=== PATIENT | female | born 1960 | race Caucasian/White ===

== ENCOUNTER 2021-04-15 00:24 | Day surgery (SDC) | payer BC, SELFPAY ==
[2021-03-30 14:02] VITALS: BMI 35.5
[2021-04-15 08:00] VITALS: BP 169/102; PULSE 92; RESP 20; TEMP 37; O2SAT 99; BMI 36.7
--- NOTE | 2021-04-15 08:12 | WPDANESEPPF ---
Anes - Initial Pre Proc Eval Procedure: Operation Date: 04/15/21 09:00 Proposed Procedures p Screening Colonoscopy - Rashi Andujar MD Date/Time: 04/15/21 08:12 Surgeon: Rashi Andujar MD Pre Op Diagnosis: neoplasm screening Patient Data Age: 60 Gender: F Height: 1.6 m Weight: 94 kg Last Vital Signs Temp 37.0 C 04/15/21 08:00 Pulse 92 04/15/21 08:00 Resp 20 04/15/21 08:00 BP 169/102 H 04/15/21 08:00 Pulse Ox 99 04/15/21 08:00 Allergies Allergy/AdvReac Type Severity Reaction Status Date / Time azithromycin Allergy Unknown Hives Verified 04/15/21 08:06 Penicillins Allergy Unknown Joint Pain Verified 04/15/21 08:06 Sulfa (Sulfonamide Allergy Unknown Rash Verified 04/15/21 08:06 Antibiotics) Home Medications Medication Instructions Recorded Confirmed Type atorvastatin 20 mg tablet 20 mg PO DAILY #90 tablet 02/09/21 04/15/21 Rx cholecalciferol (vitamin D3) 50 50 mcg PO DAILY 02/09/21 04/15/21 History mcg (2,000 unit) capsule famotidine 20 mg tablet 20 mg PO DAILY 02/09/21 04/15/21 History fluticasone propionate 50 2 spray INTRANASAL DAILY 02/09/21 04/15/21 History mcg/actuation nasal spray,suspension metoprolol succinate 25 mg 25 mg PO DAILY #90 tablet 02/09/21 04/15/21 Rx tablet,extended release 24 hr multivitamin 1 tablet PO DAILY 02/09/21 04/15/21 History vitamin B complex 1 tablet PO DAILY 02/09/21 04/15/21 History Patient hx anesthesia problems: none Family hx anesthesia problems: none Results Review: All pre-operative results and documents have been reviewed as part of the pre-operative evaluation. [facility] Past Medical History Medical History Dyslipidemia History of miscarriage History of vaginal delivery x 2 Hypertension Palpitations Skin cancer Surgical History Surgical History H/O dilation and curettage History of appendectomy History of melanoma excision Hx of varicose vein stripping [place] teeth removed Family History Family History Father Family history of cardiovascular disease Family history of congestive heart failure Acute myocardial infarction Mother Hypertension Social History Social History Smoking status: Never smoker Second hand tobacco smoke exposure: Yes (when she was around her mom only) Alcohol intake: current Drinks per week: 7 Alcohol use details: one glass of wine a day Substance use: never Substance use type: does not use Living arrangements: with family Spiritual care concerns: No Anes - Eval Final PreProcedure Day of Procedure 04/15/21 08:12 Patient weight: obese Heart: regular rate and rhythm Lungs: clear to auscultation Airway: Mallampati scale class III and special considerations poor opening Neurological: alert and oriented Last oral intake: >/= 8 hours ASA classification: III Emergent: no Anesthetic plan: proceed Anesthesia type and monitoring: general GIVS and standard monitoring Results Review: All pre-operative results and documents have been reviewed as part of the pre-operative evaluation. Informed Consent: The patient's anesthetic plan and its attendant risks and benefits were discussed with the patient/family/POA. Questions were solicited and answers provided to the satisfaction of the patient/family/POA.
--- NOTE | 2021-04-15 08:17 | PM.HPGS ---
History of Present Illness History of Present Illness Consent: Risks, benefits, and alternatives have been discussed and questions answered. Patient agrees to proceed with procedure. Chief complaint: neoplasm screening Narrative: Sridevi Agosto is a 60 year old female here for screening colonoscopy, last one 15 years ago. Review of Systems Constitutional: Constitutional: Denies headache(s) and Denies weakness Eyes: Eyes: Denies blurry vision ENT: Reports Normal hearing present, Denies headache(s) and Denies neck pain Cardiovascular: Cardiovascular: Denies chest pain and Denies dyspnea Respiratory: Respiratory: Denies dyspnea Gastrointestinal: Gastrointestinal: Reports no additional gastrointestinal complaints Genitourinary: Genitourinary: Denies dysuria Musculoskeletal: Musculoskeletal: Denies neck pain Integumentary/Breasts: Skin/Breast: Denies dry skin Neurologic: Reports Normal hearing present, Denies headache(s) and Denies weakness Psychiatric: Psychiatric: Denies anxiety Endocrine: Endocrine: Denies change in body appearance Hematologic/Lymphatic: Hematologic/Lymphatic: Denies easy bleeding Allergic/Immunologic: Allergic/Immunologic: Denies urticaria PMFSH Past Medical History Medical History Dyslipidemia History of miscarriage History of vaginal delivery x 2 Hypertension Palpitations Skin cancer Surgical History Surgical History H/O dilation and curettage History of appendectomy History of melanoma excision Hx of varicose vein stripping [place] teeth removed Family History Family History Father Family history of cardiovascular disease Family history of congestive heart failure Acute myocardial infarction Mother Hypertension Social History Social History Smoking status: Never smoker Second hand tobacco smoke exposure: Yes (when she was around her mom only) Alcohol intake: current Drinks per week: 7 Alcohol use details: one glass of wine a day Substance use: never Substance use type: does not use Living arrangements: with family Spiritual care concerns: No Meds Home Medications and Allergies Home Medications Medication Instructions Recorded Confirmed Type atorvastatin 20 mg tablet 20 mg PO DAILY #90 tablet 02/09/21 04/15/21 Rx cholecalciferol (vitamin D3) 50 50 mcg PO DAILY 02/09/21 04/15/21 History mcg (2,000 unit) capsule famotidine 20 mg tablet 20 mg PO DAILY 02/09/21 04/15/21 History fluticasone propionate 50 2 spray INTRANASAL DAILY 02/09/21 04/15/21 History mcg/actuation nasal spray,suspension metoprolol succinate 25 mg 25 mg PO DAILY #90 tablet 02/09/21 04/15/21 Rx tablet,extended release 24 hr multivitamin 1 tablet PO DAILY 02/09/21 04/15/21 History vitamin B complex 1 tablet PO DAILY 02/09/21 04/15/21 History Allergies Allergy/AdvReac Type Severity Reaction Status Date / Time azithromycin Allergy Unknown Hives Verified 04/15/21 08:06 Penicillins Allergy Unknown Joint Pain Verified 04/15/21 08:06 Sulfa (Sulfonamide Allergy Unknown Rash Verified 04/15/21 08:06 Antibiotics) Vital Signs Vital Signs - 24 hr 04/15/21 08:00 Temperature 98.6 F Pulse Rate 92 Respiratory Rate 20 Blood Pressure 169/102 H Pulse Oximetry 99 Exam Const: General: comfortable and no acute distress HENMT: General nose exam: Normal nares present Eyes: General: appearance normal, both eyes and all related structures Neck: Neck: no JVD Resp: Auscultation: clear to auscultation bilaterally Cardio: Rate: regular rate Rhythm: regular rhythm GI: Inspection: non-distended GI Palp: Yes Soft to palpation Skin: General skin exam: normal color Neuro: General: gait normal Speech: normal speech Extrem: General: nor
[2021-04-15] MEDS: LACTATED RINGERS 1,000 ML 150 ML IV CONT (08:18)
[2021-04-15 08:45] VITALS: BP 145/78; PULSE 64; RESP 21; O2SAT 99
[2021-04-15 08:55] VITALS: BP 144/83; PULSE 66; RESP 26; O2SAT 100
[2021-04-15 09:05] VITALS: BP 160/85; PULSE 65; RESP 22; O2SAT 100
== END 2021-04-15 09:13 | disposition home or self-care (01) ==
PROVIDERS: PCP Internal Medicine; Visit Provider Internal Medicine Gastroenterology
PROC: 0DJD8ZZ Inspection of Lower Intestinal Tract, Via Natural or Artificial Opening Endoscopic (ICD-10-PCS; CPT 45378; principal; 2021-04-15 09:00)
DX: Z12.11 Encounter for screening for malignant neoplasm of colon (principal); K64.8 Other hemorrhoids; D12.2 Benign neoplasm of ascending colon; D12.4 Benign neoplasm of descending colon; K63.5 Polyp of colon; E78.5 Hyperlipidemia, unspecified; I10 Essential (primary) hypertension; R00.2 Palpitations; E66.9 Obesity, unspecified; Z68.36 Body mass index [BMI] 36.0-36.9, adult
CPT/HCPCS: 45385; 88305; J2001; J2704; J7120

== ENCOUNTER → 2021-04-19 15:16 | Outpatient (CLI) | payer BC, SELFPAY ==
--- NOTE | ~2021-04-19 | US_ITS ---
EXAMINATION: US pelvic complete w TV DATE: 04/19/2021 15:54 INDICATION: Abdominal and pelvic swelling. Palpable mass. Comparison:No prior studies for comparison. TECHNIQUE: Multiple transabdominal and endovaginal sonographic images of the pelvis performed. FINDINGS: The uterus measures 10.3 x 2.8 x 5.3 cm. Uterus is heterogeneous and contains masses, large st posteriorly measuring 9.9 x 7.5 x 8.7 cm, consistent with uterine fibroids. The endometrial comple x measures 2 mm. The ovaries are not visualized. There is no free fluid in the pelvis. There are no abnormal masses seen on either side. IMPRESSION: 1. Enlarged fibroid uterus, largest discrete fibroid measuring 9.9 cm maximum dimension. Reviewed, dictated and finalized at location A. IX PLATER IMPRESSION: 1. Enlarged fibroid uterus, largest discrete fibroid measuring 9.9 cm maximum d imension.
== END ==
PROVIDERS: PCP Internal Medicine; Visit Provider Student in an Organized Health Care Education/Training Program
DX: R19.00 Intra-abdominal and pelvic swelling, mass and lump, unspecified site (principal); D25.9 Leiomyoma of uterus, unspecified
CPT/HCPCS: 76830; 76856

== ENCOUNTER → 2021-06-01 14:05 | Outpatient (CLI) | payer BC, SELFPAY ==
--- NOTE | ~2021-06-01 | MM_ITS ---
EXAMINATION: [facility] HISTORY: Screening mammogram TECHNIQUE: Craniocaudal and mediolateral oblique 3-D tomosynthesis images were obtained and synthetic 2-D images were generated. CAD analysis was submitted and interpreted. COMPARISON: 08/15/2018, 06/16/2016, 05/13/2013 BREAST PARENCHYMAL COMPOSITION: There are scattered areas of fibroglandular density. FINDINGS: There is no evidence of suspicious mass, calcification, or architectural distortion to sugg est malignancy in either breast. There has been no suspicious interval change. IMPRESSION: 1. No mammographic evidence of malignancy. 2. Recommend routine screening mammography in one year. BI-RADS Category 1: Negative Reviewed, dictated and finalized at location A. AL SCHEDULING COORDINATOR
== END ==
PROVIDERS: PCP Internal Medicine; Visit Provider Internal Medicine
DX: Z12.31 Encounter for screening mammogram for malignant neoplasm of breast (principal)
CPT/HCPCS: 77063; 77067

== ENCOUNTER → 2021-07-13 13:18 | Outpatient (CLI) | payer BC, SELFPAY ==
--- NOTE | ~2021-07-13 | DEXA_ITS ---
Bone Density Report Name: KARAN MIXON Age: 60 Sex: Female Ethnicity: White Date of : 1960 Indication: postmenopausal; screening for osteoporosis; Referring Provider: BUFFY ACE Study: Bone densitometry was performed. Exam Date: July 13, 2021 Accession number: [id number] Bone Density: Region BMD T-score Z-score Classification AP Spine (L1-L4) 1.128 0.7 2.3 Normal Femoral Neck (Left) 1.147 2.7 4.0 Normal Total Hip (Left) 1.206 2.2 3.2 Normal Femoral Neck (Right) 1.137 2.6 4.0 Normal Total Hip (Right) 1.188 2.0 3.1 Normal Total Hip Mean 1.197 2.1 3.2 Normal World Health Organization criteria for BMD impression classify patients as: Normal (T-score at or above -1.0), Osteopenia (T-score between -1.0 and -2.5), or Osteoporosis (T-score at or below -2.5). 10-year Fracture Risk: FRAX not reported because: All T-scores for Spine Total, Hip Total, Femoral Neck at or above -1.0 Previous Exams: Region Exam Age BMD T-score BMD Change BMD Change Date g/cm2 vs Baseline vs Previous AP Spine(L1-L4) 07/13/2021 60 1.128 0.7 0.035 0.035 01/24/2010 49 1.094 0.4 Total Hip(Left) 07/13/2021 60 1.206 2.2 0.034 0.034 01/24/2010 49 1.172 1.9 Total Hip(Right) 07/13/2021 60 1.188 2.0 0.000 0.000 01/24/2010 49 1.188 2.0 *Denotes significance at 95% confidence level, LSC for AP Spine = 0.022 g/cm2, LSC for Total Hip = 0.027 g/cm2 Clinical Information Provided by Patient: Has used the following medications: Vitamin D Patient maximum height was 63 Menopause Age: 48 Drinks caffeinated beverages Onset of menses at age 13 Number of children 2 Missed period for more than 6 months in a row Impression: The patient has normal bone mass. No significant bone loss was observed. Discussion: LOW RISK OF FRACTURE; BONE DENSITY IS WELL ABOVE THE MINIMUM DESIRABLE LEVEL AND ABOVE AVERAGE FOR AGE AND SEX AT ALL SKELETAL SITES TESTED. This person's bone density is above expected limits for age and sex. This is rarely clinically significant, but should be pursued if there are significant musculoskeletal complaints. The patient should follow a healthful lifestyle (good nutrition with adequate calcium and vitamin D, and appropriate weight-bearing exercise). Follow-Up: Consider repeating this study in 5 years or sooner if there is some new clinical indication. Reported by: CEM on
== END ==
PROVIDERS: PCP Internal Medicine; Visit Provider Internal Medicine
DX: Z78.0 Asymptomatic menopausal state (principal)
CPT/HCPCS: 77080

== ENCOUNTER 2021-08-08 11:25 | Outpatient (CLI) | payer BC, SELFPAY ==
--- NOTE | 2021-08-08 | ECG_ITS ---
Measurements Intervals [place] Rate: 61 P: -14 RI: 133 QRS: 28 QRSD: 93 T: 43 QT: 421 QTc: 427 Interpretive Statements SINUS RHYTHM Electronically Signed On 08-08-2021 15:52:04 CDT by Landon Bose M.D.
[2021-08-08 13:02] LABS: Basophils Percent Auto 0.6 % (0.2-1.2); Eosinophils Percent Auto 0.6 % (0-4.4); Hematocrit 47.6 % (37.0-47.0); Immature Granulocyte Absolute 0.01 K/mm3 (0.00-0.031); Immature Granulocyte Percent A 0.2 % (0-0.5); Lymphocytes Absolute Auto 1.25 K/mm3 (0.9-3.2); Lymphocytes Percent Auto 24.3 % (18.3-44.2); Mean Corpuscular HGB Conc 31.5 g/dl (32-36); Mean Corpuscular Hemoglobin 30.4 pg (26-34); Mean Corpuscular Volume 96.6 fl (80-100); Mean Platelet Volume 12.2 fl (7.4-10.4); Monocytes Absolute Auto 0.6 K/mm3 (0.1-0.6); Monocytes Percent Auto 11.5 % (2.6-8.5); Neutrophils Absolute Auto 3.2 K/mm3 (1.3-6.7); Neutrophils Percent Auto 62.8 % (45.5-73.1); Platelet Count Result 185 k/mm3 (150-375); Red Blood Count 4.93 M/mm3 (4.2-5.4); Red Cell Distribution Width 14.5 % (11.5-14.5); White Blood Count 5.1 K/mm3 (4.5-10.0)
== END 2021-08-08 11:26 | disposition home or self-care (01) ==
LOC: ANHSURGERY 11:28
PROVIDERS: PCP Internal Medicine; Visit Provider Student in an Organized Health Care Education/Training Program
DX: D21.9 Benign neoplasm of connective and other soft tissue, unspecified (principal); I10 Essential (primary) hypertension; R32 Unspecified urinary incontinence
CPT/HCPCS: 36415; 85025; 86850; 86900; 86901; 87086; 93005

== ENCOUNTER 2021-08-12 12:14 | Inpatient (IN) | payer BC, SELFPAY ==
[2021-08-08 07:58] VITALS: BMI 34.6
--- NOTE | 2021-08-08 08:02 | PC.NURSE ---
Report to the Outpatient Waiting Room, entrance under the green pavilion located off [facility], at time __0600__ on date _08-12-2021_. OR Time: ____. - You and your visitor will be asked a series of questions to screen for COVID 19 for your protection. - A mask is required within the hospital. Preoperative COVID Testing Requirements: No COVID Test needed if: (proof is required; if not received patient will have Rapid Test prior to entry) - Patient has received COVID Vaccine at least 14 days prior to procedure date or - Patient has positive COVID test result within last 90 days of surgery date. COVID Test needed if above criteria is not met If not COVID vaccinated a COVID test must be conducted within 72 hours of surgery and patient is asked to isolate self from time of testing until procedure. You will go to the [facility] for your COVID testing. The [facility] site is located at the corner of [address] from [facility]. You will only be called if COVID results are positive and your surgeon may reschedule your elective surgery date. Patients may have clear liquids (water, carbonated beverages, clear teas, apple juice) until 3 hours prior to surgery with a maximum of 20 ounces. - No food from midnight until time of surgery - Infants may have breast milk until 4 hours before surgery, formula 6 hours prior to surgery. - Children will be allowed to drink immediately following surgery. If applicable, please bring a bottle or sippy cup to assist with drinking. Juice, water, soda, and popsicles are readily available. For infants on formula, please bring formula the day of surgery. Pacifiers are allowed. Take the following medications with a SIP of water the morning of surgery: __Metoprolol Medications to discontinue per physician Vitamins Date to take last ukhw [id number]____ Please no make-up, nail canadian, hairspray, perfume, deodorant, or body powder the day of surgery. No jewelry (including any body piercings) or valuables the day of surgery, leave them at home. Please take a shower or bath the night before, or the morning of, surgery with an antibacterial soap. Wear comfortable, loose fitting clothing. Children are encouraged to wear pajamas. - Jewelry must be removed prior to entering the operating room. Rings and piercings that are not removed may be cut off. - The hospital will not accept responsibility for valuables. - Please leave all valuables, including medications, at home the day of surgery. If you are going home after surgery, a licensed tour driver must drive you home. - NO public transportation without another adult. - We recommend that an adult stay with you for 24 hours following discharge. - We also recommend that you do not drive, make important decision, drink alcoholic beverages, or take any drugs that were not prescribed by your health care provider for at least 24 hours after your discharge time. For Pediatric surgeries, we recommend two adults accompany the child home (only one inside the building at this time). One visitor will be allowed to accompany the patient into the hospital. Patients visitor will be instructed to remain with patient at all times or leave the building. We will allow the visitor to come back to the postoperative area when patient is ready. Follow any additional instructions given to you from your surgeon. Telephone instructions given to Patient and asked if any additional questions and then verbalized understanding. Patient advised to call surgeon office or pre surgery nurse liaison [phone] if any additional questions.
--- NOTE | 2021-08-11 04:59 | PM.IMHP ---
H&P: HPI History of Present Illness Date/Time: 08/11/21 04:59 60 yo with MONA. WIll perform sling at the time of her Hyst Chief Complaint: MONA Review of Systems Review of Systems: All systems reviewed & are unremarkable except as noted in HPI and below PMFSH Past Medical History Medical History Dyslipidemia History of miscarriage History of vaginal delivery x 2 Hypertension Palpitations Skin cancer Surgical History Surgical History H/O dilation and curettage History of appendectomy History of melanoma excision Hx of varicose vein stripping [place] teeth removed Family History Family History Father Family history of cardiovascular disease Family history of congestive heart failure Acute myocardial infarction Mother Hypertension Social History Social History Smoking status: Never smoker Second hand tobacco smoke exposure: Yes (when she was around her mom only) Alcohol intake: current Drinks per week: 4 Alcohol use details: one glass of wine a day Substance use: never Substance use type: does not use Spiritual care concerns: No Meds Home Medications and Allergies Home Medications Medication Instructions Recorded Confirmed Type atorvastatin 20 mg tablet 20 mg PO DAILY #90 tablet 02/09/21 08/08/21 Rx cholecalciferol (vitamin D3) 50 50 mcg PO DAILY 02/09/21 08/08/21 History mcg (2,000 unit) capsule famotidine 20 mg tablet 20 mg PO DAILY PRN 02/09/21 08/08/21 History fluticasone propionate 50 2 spray INTRANASAL DAILY 02/09/21 08/08/21 History mcg/actuation nasal spray,suspension multivitamin 1 tablet PO DAILY 02/09/21 08/08/21 History melatonin 500 mcg PO HS 08/08/21 08/08/21 History metoprolol succinate 50 mg PO DAILY 08/08/21 08/08/21 History Allergies Allergy/AdvReac Type Severity Reaction Status Date / Time azithromycin Allergy Unknown Hives Verified 07/22/21 09:52 Penicillins Allergy Unknown Joint Pain Verified 07/22/21 09:52 Sulfa (Sulfonamide Allergy Unknown Rash Verified 07/22/21 09:52 Antibiotics) Exam Narrative: NAD + urethral mobility A+O x3 Assessment and Plan Assessment and plan (1) MONA (stress urinary incontinence, female): Code(s): N39.3 - Stress incontinence (female) (male) Status: Acute Assessment and Plan: urethral sling
--- NOTE | 2021-08-11 13:58 | WPDANESEPPF ---
Anes - Initial Pre Proc Eval Procedure: Operation Date: 08/12/21 07:30 Proposed Procedures p Total Abdominal Hysterectomy with Bilateral Salpingo-Oophorectomy - Dianna Pichardo MD s Urethral Sling - Andres Claros MD Date/Time: 08/11/21 13:58 Surgeon: Dianna Pichardo MD Pre Op Diagnosis: Fibroid Uterus, Pelvic Pain Patient Data Age: 60 Gender: F Height: 1.6 m Weight: 88.6 kg Allergies Allergy/AdvReac Type Severity Reaction Status Date / Time azithromycin Allergy Unknown Hives Verified 08/12/21 06:53 Penicillins Allergy Unknown Joint Pain Verified 08/12/21 06:53 Sulfa (Sulfonamide Allergy Unknown Rash Verified 08/12/21 06:53 Antibiotics) Home Medications Medication Instructions Recorded Confirmed Type atorvastatin 20 mg tablet 20 mg PO DAILY #90 tablet 02/09/21 08/12/21 Rx cholecalciferol (vitamin D3) 50 50 mcg PO DAILY 02/09/21 08/12/21 History mcg (2,000 unit) capsule famotidine 20 mg tablet 20 mg PO DAILY PRN 02/09/21 08/12/21 History fluticasone propionate 50 2 spray INTRANASAL DAILY 02/09/21 08/12/21 History mcg/actuation nasal spray,suspension multivitamin 1 tablet PO DAILY 02/09/21 08/12/21 History melatonin 500 mcg PO HS 08/08/21 08/12/21 History metoprolol succinate 50 mg PO DAILY 08/08/21 08/12/21 History Patient hx anesthesia problems: none Family hx anesthesia problems: none Results Review: All pre-operative results and documents have been reviewed as part of the pre-operative evaluation. PENDING SALE TO [facility] Past Medical History Medical History Dyslipidemia History of miscarriage History of vaginal delivery x 2 Hypertension Palpitations Skin cancer Surgical History Surgical History H/O dilation and curettage History of appendectomy History of melanoma excision Hx of varicose vein stripping [place] teeth removed Family History Family History Father Family history of cardiovascular disease Family history of congestive heart failure Acute myocardial infarction Mother Hypertension Social History Social History Smoking status: Never smoker Second hand tobacco smoke exposure: Yes (when she was around her mom only) Alcohol intake: current Drinks per week: 7 Alcohol use details: one glass of wine a day Substance use: never Substance use type: does not use Living arrangements: with family Spiritual care concerns: No Anes - Eval Final PreProcedure Day of Procedure 08/11/21 13:58 Patient weight: obese Heart: regular rate and rhythm Lungs: clear to auscultation Airway: Mallampati scale class III Neurological: alert and oriented Last oral intake: >/= 8 hours ASA classification: III Emergent: no Anesthetic plan: proceed Anesthesia type and monitoring: general ETT and standard monitoring Results Review: All pre-operative results and documents have been reviewed as part of the pre-operative evaluation. Informed Consent: The patient's anesthetic plan and its attendant risks and benefits were discussed with the patient/family/POA. Questions were solicited and answers provided to the satisfaction of the patient/family/POA.
--- NOTE | 2021-08-11 16:50 | PM.IMHP ---
H&P: HPI History of Present Illness Date/Time: 08/11/21 16:50 Patient is a 60 year old woman with history of fibroid uterus and pelvic pain. She reports persistent pelvic pain and more recently, reports postcoital pain that lasts for 24 hours afterwards. Patient also reports urinary symptoms, inc. MONA, urge incontinence, and urinary frequency. Discussion had with patient regarding possible management options and decision was made to proceed with a hysterectomy/BSO as, hopefully, definitive management. Patient has also been evaluated by Dr. Claros who will address her urinary symptoms at same time. In general, patient reports feeling well today without complaints. Chief Complaint: Fibroid uterus Pelvic pain Review of Systems Review of Systems: All systems reviewed & are unremarkable except as noted in HPI and below Constitutional: Constitutional: Reports as per HPI, Reports no additional constitutional complaints, Denies chills, Denies fever(s), Denies headache(s) and Denies night sweats Eyes: Eyes: Reports as per HPI and Reports no additional eye complaints ENT: Reports system reviewed and no additional complaints, except as documented, Reports as per HPI, Reports Normal hearing present and Denies headache(s) Cardiovascular: Cardiovascular: Reports as per HPI, Reports no additional cardiovascular complaints, Denies chest pain and Denies dyspnea Respiratory: Respiratory: Reports as per HPI, Reports no additional respiratory complaints, Denies cough and Denies dyspnea Gastrointestinal: Gastrointestinal: Reports as per HPI, Reports no additional gastrointestinal complaints, Denies abdominal pain, Denies change in bowel habits, Denies change in stool character, Denies nausea and Denies vomiting Genitourinary: Genitourinary: Reports no additional female genitourinary complaints, Reports as per HPI, Denies abnormal vaginal bleeding, Denies genital lesions, Denies hot flashes, Denies dyspareunia, Denies pelvic pain, Denies sexual dysfunction, Denies urinary incontinence, Denies vaginal discharge, Denies vaginal dryness and Denies vaginal odor Musculoskeletal: Musculoskeletal: Reports no additional musculoskeletal complaints and Reports as per HPI Integumentary/Breasts: Skin/Breast: Reports system reviewed and no additional complaints, except as docu, Reports as per HPI, Denies breast pain and Denies nipple discharge Neurologic: Reports system reviewed and no additional complaints, except as documented, Reports as per HPI, Reports Normal hearing present and Denies headache(s) Psychiatric: Psychiatric: Reports no additional psychiatric complaints, Reports as per HPI, Denies anxiety and Denies depression Endocrine: Endocrine: Reports no additional endocrine complaints and Reports as per HPI Hematologic/Lymphatic: Hematologic/Lymphatic: Reports no additional hematologic/lymphatic complaints and Reports as per HPI Allergic/Immunologic: Allergic/Immunologic: Reports no additional allergic/immunologic complaints and Reports as per HPI PMFSH Past Medical History Medical History Dyslipidemia History of miscarriage History of vaginal delivery x 2 Hypertension Palpitations Skin cancer Surgical History Surgical History H/O dilation and curettage History of appendectomy History of melanoma excision Hx of varicose vein stripping [place] teeth removed Family History Family History Father Family history of cardiovascular disease Family history of congestive heart failure Acute myocardial infarction Mother Hypertension Social History Social History Smoking status: Never smoker Second hand tobacco smoke exposure: Yes (when she was around her mom only) Alcohol intake: current Drinks per week: 4 Alcohol use details: one glass of
[2021-08-12] VITALS (14 sets, daily range): BP systolic 110–164; BP diastolic 63–94; PULSE 59–78; RESP 11–18; TEMP 36.3–37.1; O2SAT 95–100
[2021-08-12] MEDS: LACTATED RINGERS 1,000 ML 30 ML IV CONT ×2 (06:45→10:49)
[2021-08-12] MEDS: ACETAMINOPHEN 500 MG TABLET 1000 MG PO (06:48)
[2021-08-12] MEDS: KETOROLAC 15 MG/ML VIAL (*BKC) IV PUSH (06:48)
--- NOTE | 2021-08-12 07:15 | WPDHPUPDATE1 ---
History and Physical Update Update Date/Time: 08/12/21 07:15 History and Physical has been reviewed, including an updated exam of the patient. There are NO changes in the patient's condition. Risks, benefits, and alternatives have been discussed and questions answered. Patient agrees to proceed with procedure.
--- NOTE | 2021-08-12 07:16 | W.PM.PROC2 ---
Procedure Note - Detailed Date of Procedure 08/12/21 Pre-op Diagnosis Fibroid Uterus, Pelvic Pain Post-op Diagnosis Other (fibroid uterus, pelvic pain, anterior vaginal wall polyp) Procedure Performed Total abdominal hysterectomy, bilateral salpingo-oophorectomy, anterior vaginal wall polypectomy Surgeon Dianna Pichardo MD [facility] Anesthesia General Findings Small uterus with a few fibroids of different sizes, largest approx. 3-4cm; extremely enlarged firm, however, smooth right ovary measuring approx. 10cm; normal appearing left ovary and fallopian tubes bilaterally, approx. 2cm anterior vaginal wall polyp or cyst Description of Procedure The patient was taken to the operating room where she self-transferred to the operating room table. She was placed in the dorsal supine position. General anesthesia was administered and found to be adequate. The patient was prepped and draped in the usual sterile fashion. A Pfannenstiel skin incision was made with a scalpel and carried through to the underlying layer of fascia with the Bovie. The fascia was incised in the midline and the incision was extended laterally with the use of forceps and Owen scissors. The inferior aspect of the fascial incision was grasped with Jinny clamps, elevated, and the underlying rectus muscles were dissected off with Owen scissors. Attention was turned to the superior aspect of the fascial incision, which in a similar manner was grasped with Jinny clamps, elevated, and the underlying rectus muscles also dissected off with Owen scissors. The rectus muscles were gently retracted and the peritoneal cavity was entered bluntly. The peritoneal cavity was gently stretched. The uterus and what was thought to be a large fibroid was palpated beneath. Two lap pads were placed laterally beneath the rectus muscle bellies and a self-retaining Oakman retractor was placed. Three additional lap pads were placed in the abdomen to displace the bowel cephalad and laterally. A towel clamp was used to help elevate the uterus. The left ovary and fallopian tube appeared normal. A pean clamp was placed near the left uterine cornua for traction and elevation. The left round ligament was identified, grasped with Coral clamp, and suture ligated. The round ligament was transected with Bovie. The anterior leaf of the broad ligament was carefully dissected towards the midline to begin creation of bladder flap. Due to some limited visualization, decision was made to leave left ovary and fallopian in situ at this time. An incision in the posterior leaf of the broad ligament on the left side was created with the Bovie. The LigaSure device was then used to transect the utero-ovarian ligament on the left side. Dissection of the posterior leaf of the broad ligament was performed. Attention was then turned to the patient's right side. Right fallopian tube was visualized, however, right ovary not yet visualized. Again, due to some visualization limitations, a pean clamp was placed near the right uterine cornua for traction and elevation. The right round ligament was identified, grasped with a Brady clamp, and suture ligated. The round ligament was transected with the Bovie and the anterior leaf of the broad ligament was carefully dissected towards the midline. The opposing ends were joined in the midline and careful dissection was performed to displace the bladder inferiorly. Dissection was primarily performed with sharp dissection using Metzenbaum scissors and a sponge stick. The bladder was depressed inferiorly below the level of the anterior cervix. An effort was made to dislodge the suspected large fibroid that was wedged deep within the pelvis. This mass was elevated through the incision. It did not, however, appear to be extending from any portion of the uterus and was slightly irregularly shaped, but otherwise smooth in texture and mobile. Upon further evaluation, it was determined that this large mass was
[2021-08-12] MEDS: ceFAZolin 2 GM/D5W 50 ML 2 GM/50 ML BAG IVPB (07:32)
[2021-08-12] MEDS: BUPIVACAINE/EPINEPHRINE 0.25% 50 ML VIAL 20 ML INFILTRATE (08:33)
--- NOTE | 2021-08-12 10:51 | W.PM.PROC2 ---
Procedure Note - Detailed Date of Procedure 08/12/21 Pre-op Diagnosis Fibroid Uterus, Pelvic Pain Post-op Diagnosis Same Procedure Performed mid urethral sling cystoscopy Surgeon Andres Claros MD Indications This is a female with confirm stress urinary incontinence. She desires surgical correction. She understands the risks of bleeding, infection, injury to the urinary tract, vaginal mesh extrusion, urinary tract mesh erosion, obstructive voiding requiring a secondary procedure, hip and leg pain, dyspareunia, inability to improve overactive bladder symptoms. She agrees to proceed. I am doing this in conjunction with hysterectomy Description of Procedure I entered the operating room at the end of her hysterectomy. She was repositioned and prepped and draped in dorsal lithotomy position. A time-out performed. She had some bloody urine. Because of this I performed cystoscopy 1st. She had no bladder injury. Just some bruising. Both ureteral orifices were seen to excrete clear yellow urine. I marked out the site of the inner thigh incisions. I anesthetized the skin and made those incisions. She had a very narrow introitus. I anesthetized the anterior vaginal wall over the mid urethra. I made a 1 cm incision. I dissected out laterally taking great care not to injure the refilled vaginal wall. I passed the helical trocars. First on the left. Then on the right. I did this from the thigh incision towards the vaginal incision. The sling was connected to the trocars and brought out through the thigh incision. I tensioned the sling appropriately. I cut and the plastic sheaths. I then closed the incision with 2 0 Vicryl. On repeat cystoscopy there is no tumors or surgical artifact. There was no surgical artifact in the urethra. I cut the excess sling material. Close incisions with glue. She was awakened and transferred to the PACU in stable condition. Implants Urethral sling Drains No Packing No Pathology None sent Complications No immediate complications Condition Stable Disposition PACU
[2021-08-12] MEDS: fentaNYL CITRATE INJ (*CRX) 100 MCG/2 ML VIAL 25 MCG IV PUSH ×3 (11:12→11:30)
--- NOTE | 2021-08-12 12:26 | PC.NURSE ---
This patient, Sridevi Agosto, was received from PACU on 08/12/21 at 1226. Patient/family oriented to unit policies and routines
[2021-08-12] MEDS: IBUPROFEN IV 800 MG/200 ML 800 MG/200 ML BAG 400 MG IVPB ×2 (13:14→19:01)
[2021-08-12] MEDS: DEXTROSE 5%/0.45% SOD CHL 1,000 ML 125 ML IV CONT (13:14)
[2021-08-12] MEDS: MORPHINE SULFATE (*CRX) 4 MG/ML INJ IV PUSH ×2 (17:30→23:10)
[2021-08-13] MEDS: IBUPROFEN IV 800 MG/200 ML 800 MG/200 ML BAG 400 MG IVPB ×2 (00:42→07:40)
[2021-08-13 03:30] VITALS: BP 101/65; PULSE 67; RESP 16; TEMP 36.9; O2SAT 97
[2021-08-13 05:19] LABS: Basophils Percent Auto 0.2 % (0.2-1.2); Eosinophils Percent Auto 0.1 % (0-4.4); Hematocrit 35.2 % (37.0-47.0); Hemoglobin 11.4 g/dL (12.0-15.0); Immature Granulocyte Absolute 0.03 K/mm3 (0.00-0.031); Immature Granulocyte Percent A 0.3 % (0-0.5); Lymphocytes Absolute Auto 0.97 K/mm3 (0.9-3.2); Lymphocytes Percent Auto 9.2 % (18.3-44.2); Mean Corpuscular HGB Conc 32.4 g/dl (32-36); Mean Corpuscular Hemoglobin 30.5 pg (26-34); Mean Corpuscular Volume 94.1 fl (80-100); Mean Platelet Volume 12.9 fl (7.4-10.4); Monocytes Absolute Auto 1.1 K/mm3 (0.1-0.6); Monocytes Percent Auto 10.6 % (2.6-8.5); Neutrophils Absolute Auto 8.4 K/mm3 (1.3-6.7); Neutrophils Percent Auto 79.6 % (45.5-73.1); Platelet Count Result 149 k/mm3 (150-375); Red Blood Count 3.74 M/mm3 (4.2-5.4); Red Cell Distribution Width 14.2 % (11.5-14.5); White Blood Count 10.6 K/mm3 (4.5-10.0)
--- NOTE | 2021-08-13 06:30 | PC.NURSE ---
PT introductions made and plan of care discussed per post op protozoologist surgery, pain management, daily care activities. PT verbalized understanding of such care. PT received instructions via one to one discussion and demonstrations. PT sole recipient of instructions this shift and no barriers to learning identified at this time.
[2021-08-13 06:42] VITALS: BP 114/65; PULSE 61; RESP 18; TEMP 36.4; O2SAT 97
--- NOTE | 2021-08-13 07:35 | WPDANESPN ---
Anes - Prog Note Post-Op Date/Time: 08/13/21 07:35 Cardiovascular status: normal Respiratory status: normal Airway patency: baseline Mental status: baseline Post-Op hydration status: normal Vital Signs: Last Vital Signs Temp 36.9 C 08/13/21 03:30 Pulse 67 08/13/21 03:30 Resp 16 08/13/21 03:30 BP 101/65 08/13/21 03:30 Pulse Ox 97 08/13/21 03:30 Pain Score (VAS): 3 I/O: Intake & Output 08/12/21 08/12/21 08/13/21 15:59 23:59 07:59 Intake Total 2550 1600 900 Output Total 250 1325 1000 Balance 2300 275 -100 Laboratory Tests 08/13/21 03:42 08/13/21 03:42 WBC 10.6 H RBC 3.74 L Hgb 11.4 L D Hct 35.2 L MCV 94.1 MCH 30.5 MCHC 32.4 RDW 14.2 Plt Count 149 L MPV 12.9 H Immature Gran % (Auto) 0.3 Neut % (Auto) 79.6 H Lymph % (Auto) 9.2 L [place] % (Auto) 10.6 H Eos % (Auto) 0.1 Baso % (Auto) 0.2 Lymph # (Auto) 0.97 [place] # (Auto) 1.1 H Eos # (Auto) 0.0 Baso # (Auto) 0.0 Abs Immat Gran (auto) 0.03 Absolute Neuts (auto) 8.4 H Absolute Nucleated RBC 0.0 Nucleated RBC % 0.0 Patient Feedback: Patient satisfied with anesthetic care.
--- NOTE | 2021-08-13 09:28 | PM.GYNPNOP ---
COURTROOM DEPUTY - A/P Assessment and plan (1) S/P total abdominal hysterectomy and bilateral salpingo-oophorectomy: Code(s): Z90.710 - Acquired absence of both cervix and uterus; Z90.722 - Acquired absence of ovaries, bilateral; Z90.79 - Acquired absence of other genital organ(s) Status: Acute Assessment and Plan: POD#1 doing well encourage ambulation and use of IS will switch to PO pain medication anticipate dc home tomorrow Postoperative Procedures: Procedures Operation Date: 08/12/21 07:30 Actual Procedure Side Surgeon p Total Abdominal Hysterectomy with Bilateral Salpingo-Oophorectomy and vaginal polypectomy Bilateral Dianna Pichardo MD s Urethral Sling Not Applicable Andres Claros MD Time Spent With Patient Time: Total time spent is greater than 50% in coordination of care (as documented) at patient's floor/unit and/or counseling patient: Time with patient: less than 15 minutes COURTROOM DEPUTY- PN:Subj Post-Op Subjective Date/time seen: 08/13/21 09:28 Patient doing well. Pain reasonably controlled with medication. Denies any headache, chest pain, SOB, N/V. Tolerating PO diet. Ambulating well. Mckeon catheter removed this morning. Has voided afterwards. Bladder scan done. Passing flatus. Exam Const: General: cooperative, healthy appearing, comfortable and no acute distress GI: Inspection: non-distended GI Palp: Yes Soft to palpation and No Tenderness to palpation present (GI) Other: inc c/d/i Extrem: Right lower extremity: no edema Left lower extremity: no edema Other: no calf tenderness COURTROOM DEPUTY - PN: Obj Data Vital Signs Vital Signs: Vital Signs - 24 hr 08/12/21 10:49 08/12/21 11:00 08/12/21 11:15 Temperature 36.4 C Pulse Rate 69 63 66 Respiratory Rate 11 L 12 12 Blood Pressure 155/78 H 128/67 138/64 Pulse Oximetry 96 100 95 08/12/21 11:30 08/12/21 11:45 08/12/21 12:00 Temperature Pulse Rate 65 63 60 Respiratory Rate 12 16 12 Blood Pressure 142/63 H 147/75 H 121/69 Pulse Oximetry 100 100 100 08/12/21 12:10 08/12/21 12:30 08/12/21 12:35 Temperature 36.4 C Pulse Rate 59 L 61 Respiratory Rate 12 18 Blood Pressure 119/69 133/71 Pulse Oximetry 100 100 100 08/12/21 16:15 08/12/21 19:00 08/12/21 23:05 Temperature 36.7 C 37.1 C 36.7 C Pulse Rate 68 72 73 Respiratory Rate 14 16 16 Blood Pressure 141/80 H 124/78 110/69 Pulse Oximetry 100 97 98 08/13/21 03:30 Temperature 36.9 C Pulse Rate 67 Respiratory Rate 16 Blood Pressure 101/65 Pulse Oximetry 97 Intake/Output Intake/Output: Intake & Output 08/10/21 08/11/21 08/12/21 08/13/21 23:59 23:59 23:59 23:59 Intake Total 4150 900 Output Total 1575 1000 Balance 2575 -100 Meds/Results Medications: Active Medications Generic Name Dose Route Start Last Admin Trade Name Freq PRN Reason Stop Dose Admin Atorvastatin Calcium 20 mg 08/13/21 09:00 Atorvastatin 20 Mg Tablet PO DAILY PENDING SALE TO [facility] Docusate Sodium 100 mg 08/12/21 12:14 Docusate Sodium 100 Mg Capsule PO BID PRN Constipation Fluticasone Propionate 2 spray 08/13/21 09:00 Fluticasone Propionate 0.05% Na Spr 16 Gm Btl (*Bkc) NASAL DAILY PENDING SALE TO [facility] Dextrose/Sodium Chloride 1,000 mls @ 125 mls/hr 08/12/21 12:14 08/13/21 04:48 Dextrose 5% Sodium Chloride 0.45% IV CONT Not Given .Q8H PENDING SALE TO [facility] Metoprolol Succinate 50 mg 08/13/21 09:00 Metoprolol Succinate Ext Rel 50 Mg Tabcr PO DAILY PENDING SALE TO [facility] Morphine Sulfate 4 mg 08/12/21 12:14 08/12/21 23:10 Morphine Sulfate (*Crx) 4 Mg/Ml Inj IV PUSH 4 mg Q4H PRN Administration Pain Rated 7-10 Ondansetron HCl 4 mg 08/12/21 12:14 Ondansetron Inj 4 Mg/2 Ml Vial IV PUSH Q6H PRN Nausea Simethicone 80 mg 08/12/21 12:14 Simethicone 80 Mg Tab.Chew PO Q2H PRN Gas Labs CBC & Chem 7: 08/13/21 03:42 Labs: Laboratory Results - last 24 hr 08/13/21 03:42 WBC 10.6 H RBC 3.74 L Hgb 11.4 L D Hct 35.2 L MC
[2021-08-13] MEDS: SIMETHICONE 80 MG TAB.CHEW PO ×4 (09:46→20:53)
[2021-08-13] MEDS: DOCUSATE SODIUM 100 MG CAPSULE PO ×2 (09:46→17:24)
[2021-08-13 09:47] VITALS: PULSE 66
[2021-08-13] MEDS: METOPROLOL SUCCINATE EXT REL 50 MG TABCR PO (09:47)
[2021-08-13] MEDS: FLUTICASONE PROPIONATE 0.05% NA SPR 16 GM BTL (*BKC) 2 SPRAY NASAL (09:47)
[2021-08-13] MEDS: ATORVASTATIN 20 MG TABLET PO (09:48)
[2021-08-13] MEDS: ACETAMINOPHEN 500 MG TABLET 1000 MG PO ×2 (14:32→20:53)
[2021-08-13] MEDS: IBUPROFEN 600 MG TABLET PO ×2 (14:34→20:53)
[2021-08-13 21:00] VITALS: BP 117/60; PULSE 67; RESP 16; TEMP 36.8; O2SAT 97
[2021-08-14] MEDS: SIMETHICONE 80 MG TAB.CHEW PO ×2 (03:00→09:23)
[2021-08-14] MEDS: ACETAMINOPHEN 500 MG TABLET 1000 MG PO ×2 (03:00→09:22)
[2021-08-14] MEDS: IBUPROFEN 600 MG TABLET PO ×2 (03:00→09:23)
[2021-08-14 08:00] VITALS: BP 160/88; PULSE 80; RESP 18; TEMP 36.7
--- NOTE | 2021-08-14 08:52 | PC.NURSE ---
Discharge instructions given per Dr. Pichardo. Pt. verbalized understanding. Very comfortable with discharge. No questions or concerns voiced.
[2021-08-14] MEDS: FLUTICASONE PROPIONATE 0.05% NA SPR 16 GM BTL (*BKC) 2 SPRAY NASAL (09:21)
[2021-08-14 09:22] VITALS: BP 173/86
[2021-08-14 09:23] VITALS: PULSE 74
[2021-08-14] MEDS: METOPROLOL SUCCINATE EXT REL 50 MG TABCR PO (09:23)
[2021-08-14] MEDS: DOCUSATE SODIUM 100 MG CAPSULE PO (09:23)
[2021-08-14] MEDS: ATORVASTATIN 20 MG TABLET PO (09:23)
[2021-08-14 09:30] VITALS: BP 154/85
--- NOTE | 2021-08-14 09:44 | PM.DS ---
DS: Admitting Diagnosis Discharge Date 08/14/21 Admitting Diagnosis pelvic pain DS: Summary Hospital Course Hospital Course: uncomplicated Time Spent with Patient Time attestation: Total time spent providing and/or coordinating discharge services: DS: Data Data Completed and Pending Completed studies during hospitalization: Pending at discharge 08/12/21 08:27 Surgical [PTH] Routine Surgical [PTH] Routine Discharge Plan Discharge Attending physician on discharge: Dianna Pichardo Consulting providers: Andres Claros Discharging Clinician: Dianna Pichardo Anticipated Discharge Date/Time: 08/14/21 09:56 Patient Disposition: Home, Self-Care Activity: may shower, pelvic rest and other - see discharge instructions Diet: regular Discharge Instructions: Some Complications to Watch for: ? Excessive incisional or vaginal drainage (more than one pad an hour). Additional Instructions: ? Expect some vaginal spotting for 2-4 days. ? Nothing vaginally (i.e. douching, intercourse, tampons) until follow up visit. Patient Instructions: Antibiotic Form Stand Alone Forms: General Discharge Information Follow-up/Referrals: Dianna Pichardo MD [Physician] - 2 Weeks Discharge Medications: Continued atorvastatin 20 mg tablet 20 mg PO DAILY Qty: 90 RF: 1 fluticasone propionate 50 mcg/actuation spray,suspension 2 spray intranasal DAILY RF: 0 famotidine 20 mg tablet 20 mg PO DAILY PRN (Reason: Acid Reflux) RF: 0 multivitamin [Multiple Vitamins] Tablet 1 tablet PO DAILY RF: 0 cholecalciferol (vitamin D3) 50 mcg (2,000 unit) capsule 50 mcg PO DAILY RF: 0 metoprolol succinate 50 mg tablet extended release 24 hr 50 mg PO DAILY RF: 0 melatonin 500 mcg Tablet 500 mcg PO HS RF: 0 Date of admission: 08/12/21 12:14 Primary Care Provider: Yash Valencia Admitting Provider: Dianna Pichardo Attending physician on admission: Dianna Pichardo Condition: Stable
--- NOTE | 2021-08-14 09:55 | PM.GYNPNOP ---
HAND COMPOSITOR - A/P Assessment and plan (1) S/P total abdominal hysterectomy and bilateral salpingo-oophorectomy: Code(s): Z90.710 - Acquired absence of both cervix and uterus; Z90.722 - Acquired absence of ovaries, bilateral; Z90.79 - Acquired absence of other genital organ(s) Status: Acute Assessment and Plan: POD#2 doing well continue routine postoperative care encourage ambulation and use of IS discharge home today in stable condition f/u in office in 2 weeks emergency precautions reviewed Postoperative Procedures: Procedures Operation Date: 08/12/21 07:30 Actual Procedure Side Surgeon p Total Abdominal Hysterectomy with Bilateral Salpingo-Oophorectomy and vaginal polypectomy Bilateral Dianna Pichardo MD s Urethral Sling Not Applicable Andres Claros MD Time Spent With Patient Time: Total time spent is greater than 50% in coordination of care (as documented) at patient's floor/unit and/or counseling patient: Time with patient: less than 15 minutes HAND COMPOSITOR- PN:Subj Post-Op Subjective Date/time seen: 08/14/21 09:55 Patient doing well. Pain reasonably controlled with medication. Denies any headache, chest pain, SOB, N/V. Tolerating PO diet. Ambulating well. Voiding without difficulty. +flatus. Exam Const: General: cooperative, healthy appearing, comfortable and no acute distress GI: Inspection: non-distended GI Palp: Yes Soft to palpation and No Tenderness to palpation present (GI) Other: inc c/d/i Extrem: Right lower extremity: no edema Left lower extremity: no edema Other: no calf tenderness HAND COMPOSITOR - PN: Obj Data Vital Signs Vital Signs: Vital Signs - 24 hr 08/13/21 21:00 08/14/21 08:00 08/14/21 09:23 Temperature 36.8 C 36.7 C Pulse Rate 67 80 74 Respiratory Rate 16 18 Blood Pressure 117/60 160/88 H Pulse Oximetry 97 Intake/Output Intake/Output: Intake & Output 08/11/21 08/12/21 08/13/21 08/14/21 23:59 23:59 23:59 23:59 Intake Total 4150 1140 100 Output Total 1575 1600 Balance 2575 -460 100 Meds/Results Medications: Active Medications Generic Name Dose Route Start Last Admin Trade Name Freq PRN Reason Stop Dose Admin Acetaminophen 1,000 mg 08/13/21 09:31 08/14/21 09:22 Acetaminophen 500 Mg Tablet PO 1,000 mg Q6H PRN Administration Mild Pain (1-5) or Fever Hydrocodone Bitart/Acetaminophen 1 tab 08/13/21 10:58 Hydrocodone/Acetaminophen (*Crx) 5-325 Mg Tablet PO Q3H PRN Pain Rated 6-10 Atorvastatin Calcium 20 mg 08/13/21 09:00 08/14/21 09:23 Atorvastatin 20 Mg Tablet PO 20 mg DAILY GIORGIO Administration Docusate Sodium 100 mg 08/12/21 12:14 08/14/21 09:23 Docusate Sodium 100 Mg Capsule PO 100 mg BID PRN Administration Constipation Fluticasone Propionate 2 spray 08/13/21 09:00 08/14/21 09:21 Fluticasone Propionate 0.05% Na Spr 16 Gm Btl (*Bkc) NASAL 2 spray DAILY GIORGIO Administration Ibuprofen 600 mg 08/13/21 09:31 08/14/21 09:23 Ibuprofen 600 Mg Tablet PO 600 mg Q6H PRN Administration CRAMPING Metoprolol Succinate 50 mg 08/13/21 09:00 08/14/21 09:23 Metoprolol Succinate Ext Rel 50 Mg Tabcr PO 50 mg DAILY GIORGIO Administration Ondansetron HCl 4 mg 08/12/21 12:14 Ondansetron Inj 4 Mg/2 Ml Vial IV PUSH Q6H PRN Nausea Simethicone 80 mg 08/12/21 12:14 08/14/21 09:23 Simethicone 80 Mg Tab.Chew PO 80 mg Q2H PRN Administration Gas Labs CBC & Chem 7: 08/13/21 03:42
== END 2021-08-14 10:23 | disposition home or self-care (01) | DRG 743 ==
LOC: ANHOB2 12:17
PROVIDERS: Urology; Admitting Provider Student in an Organized Health Care Education/Training Program; PCP Internal Medicine; Visit Provider Student in an Organized Health Care Education/Training Program
PROC: 0UT94ZZ Resection of Uterus, Percutaneous Endoscopic Approach (ICD-10-PCS; principal; 2021-08-12 07:30)
PROC: 0UBG0ZX Excision of Vagina, Open Approach, Diagnostic (ICD-10-PCS; 2021-08-12 07:30)
DX: D25.9 Leiomyoma of uterus, unspecified (principal); N39.3 Stress incontinence (female) (male); N84.2 Polyp of vagina; N36.8 Other specified disorders of urethra; E78.5 Hyperlipidemia, unspecified; I10 Essential (primary) hypertension; R10.2 Pelvic and perineal pain; Z90.49 Acquired absence of other specified parts of digestive tract; Z85.828 Personal history of other malignant neoplasm of skin
CPT/HCPCS: 36415; 85025; 88305; 88307; A9270; C1771; J0131; J0690; J1100; J1170; J1741; J1885; J2250; J2270; J2405; J2704; J2710; J3010; J7030; J7120

== ENCOUNTER → 2023-01-30 11:30 | Outpatient (CLI) | payer BC, SELFPAY ==
--- NOTE | ~2023-01-30 | MM_ITS ---
EXAMINATION: MM screening ilz BI w starr HISTORY: Screening mammogram TECHNIQUE: Craniocaudal and mediolateral oblique 3-D tomosynthesis images were obtained and synthetic 2-D images were generated. CAD analysis was submitted and interpreted. COMPARISON: 06/01/2021, 08/15/2018 bilateral screening mammogram examinations BREAST PARENCHYMAL COMPOSITION: There are scattered areas of fibroglandular density. FINDINGS: There is no evidence of suspicious mass, calcification, or architectural distortion to sugg est malignancy in either breast. There has been no suspicious interval change. IMPRESSION: 1. No mammographic evidence of malignancy. 2. Recommend routine screening mammography in one year. BI-RADS Category 1: Negative Reviewed, dictated and finalized at location A.
== END ==
PROVIDERS: PCP Family Medicine; Visit Provider Family Medicine
DX: Z12.31 Encounter for screening mammogram for malignant neoplasm of breast (principal)
CPT/HCPCS: 77063; 77067

== ENCOUNTER 2024-02-11 11:30 | Outpatient (CLI) | payer BC, SELFPAY ==
--- NOTE | ~2024-02-11 | MM_ITS ---
EXAMINATION: MM screening liz BI w starr HISTORY: Screening TECHNIQUE: Craniocaudal and mediolateral oblique 3-D tomosynthesis images were obtained and synthetic 2-D images were generated. CAD analysis was submitted and interpreted. COMPARISON: Comparison to multiple prior studies sequentially, with oldest reviewed study dated 06/16. BREAST PARENCHYMAL COMPOSITION: Not dense: There are scattered areas of fibroglandular density. FINDINGS: There is no evidence of suspicious mass, calcification, or architectural distortion to sugg est malignancy in either breast. There has been no suspicious interval change. IMPRESSION: 1. No mammographic evidence of malignancy. 2. Recommend routine screening mammography in one year. BI-RADS Category 1: Negative Reviewed, dictated and finalized at location B.
== END 2024-02-11 11:31 | disposition home or self-care (01) ==
PROVIDERS: PCP Family Medicine; Visit Provider Family Medicine
DX: Z12.31 Encounter for screening mammogram for malignant neoplasm of breast (principal)
CPT/HCPCS: 77063; 77067

== ENCOUNTER 2024-02-20 09:02 | Outpatient (CLI) | payer BC, SELFPAY ==
--- NOTE | ~2024-02-20 | XR_ITS ---
Lumbosacral Spine: AP and lateral views Clinical History: Pain Findings: The normal lordotic curve is maintained. No fracture seen. 7 mm anterolisthesis of L3 over L4 present. There are mild degenerative changes. There is moderate to advanced facet arthropathy thro ughout the lumbar spine. The sacroiliac joints are normally outlined. Impression: 7 mm anterolisthesis of L3 over L4. Extensive facet arthropathy, as above. Reviewed, dictated and finalized at location M. Impression: 7 mm anterolisthesis of L3 over L4. Extensive facet arthropathy, as above.
== END 2024-02-20 09:03 | disposition home or self-care (01) ==
LOC: MICIMG 09:03
PROVIDERS: PCP Family Medicine; Visit Provider Nurse Practitioner Family
DX: M43.17 Spondylolisthesis, lumbosacral region (principal); M47.816 Spondylosis without myelopathy or radiculopathy, lumbar region
CPT/HCPCS: 72100

== ENCOUNTER 2025-02-12 10:33 | Outpatient (CLI) | payer MEDICARE, SELFPAY ==
--- NOTE | ~2025-02-12 | MM_ITS ---
EXAMINATION: MM screening liz BI w starr HISTORY: Screening TECHNIQUE: Craniocaudal and mediolateral oblique 3-D tomosynthesis images were obtained and synthetic 2-D images were generated. CAD analysis was submitted and interpreted. COMPARISON: Comparison to multiple prior studies sequentially, with oldest reviewed study dated , 06/16/2016 BREAST PARENCHYMAL COMPOSITION: There are scattered areas of fibroglandular density. FINDINGS: There is no evidence of suspicious mass, calcification, or architectural distortion to suggest malignancy in either breast. IMPRESSION: 1. No mammographic evidence of malignancy. 2. Recommend routine screening mammography in one year. BI-RADS Category 1: Negative Reviewed, dictated and finalized at location B.
== END 2025-02-12 10:34 | disposition home or self-care (01) ==
LOC: MICIMG 10:36
PROVIDERS: PCP Family Medicine; Visit Provider Family Medicine
DX: Z12.31 Encounter for screening mammogram for malignant neoplasm of breast (principal)
CPT/HCPCS: 77063; 77067